=== PATIENT | female | born 1980 | race Two or more races ===

== ENCOUNTER 2022-10-07 09:28 | Outpatient (CLI) | payer OTHER | END 2022-10-07 09:39 | disposition home or self-care (01) | LOC: RX STUDY 09:28 | DX: N91.2 Amenorrhea, unspecified (principal) ==

== ENCOUNTER 2025-05-12 10:59 | Outpatient (CLI) | payer OTHER | END 2025-05-12 11:01 | disposition home or self-care (01) | LOC: SONOGRAMA 10:59 | PROVIDERS: ATTEND Pathology Anatomic Pathology & Clinical Pathology | DX: R59.0 Localized enlarged lymph nodes (principal) ==